=== PATIENT | male | born 1955 | race Caucasian/White ===

== ENCOUNTER 2016-08-11 11:06 | Emergency (ER) | payer OTHER ==
[~2016-08-11] VITALS: Ht 203.2 cm; Wt 102.3 kg
[2016-08-11] MEDS ORDERED: NAPROSYN500 MG PO (14:20)
[2016-08-11] MEDS ORDERED: OXYCODONE HCL5 MG PO (14:20)
[2016-08-11] MEDS ORDERED: LIDODERM 5% P1 PATCH TD (14:20)
[2016-08-11 14:28] VITALS: BP 121/86
== END 2016-08-11 14:29 | disposition home or self-care (01) ==
LOC: EME 11:06
DX: S00.83XA Contusion of other part of head, initial encounter (principal); S70.12XA Contusion of left thigh, initial encounter; H11.32 Conjunctival hemorrhage, left eye; Y04.8XXA Assault by other bodily force, initial encounter; Z87.891 Personal history of nicotine dependence; F19.21 Other psychoactive substance dependence, in remission; H91.92 Unspecified hearing loss, left ear
CPT/HCPCS: 70150; 72220; 99281; 99284; J1885